=== PATIENT | female | born 1980 | race Caucasian/White ===

== ENCOUNTER 2017-03-12 18:01 | Inpatient (IN) | payer MEDICAID ==
[~2017-03-12] VITALS: Ht 154.9 cm; Wt 67.7 kg
[~2017-03-12 18:01] MED LIST: CIPR-173 PO; HYDR1CAP PO; IBUP-727 PO; TAMS-14 PO
[2017-03-12 18:43] LABS: ADD UMIC YES; UR ASCORBIC ACID NEGATIVE (NEGATIVE); UR BACTERIA FEW /HPF (NONE SEEN); UR BILIRUBIN (Dip) NEGATIVE (NEGATIVE); UR BLOOD (Dip) NEGATIVE (NEGATIVE); UR CLARITY CLEAR (CLEAR); UR COLOR STRAW (YELLOW); UR GLUCOSE (Dip) NEGATIVE (NEGATIVE); UR KETONES (Dip) TRACE mg/dL (NEGATIVE); UR LEUKOCYTE ESTERASE (Dip) TRACE Leu/ul (NEGATIVE); UR NITRITE (Dip) NEGATIVE (NEGATIVE); UR RBC 0 /HPF (0-5); UR SPECIFIC GRAVITY (Dip) 1.002 (1.003-1.030); UR TOTAL PROTEIN (Dip) NEGATIVE (NEGATIVE); UR UROBILINOGEN (Dip) NEGATIVE (NEGATIVE)
[2017-03-12] MEDS: LACTATED RINGER'S 1,000 ML IV SCH ×2 (19:00→22:28)
[2017-03-12 19:08] VITALS: Ht 154.9 cm; Wt 67.7 kg
[2017-03-12 19:09] VITALS: BP 113/62; PULSE 87; RESP 18
[2017-03-12 19:16] LABS: WHITE BLOOD COUNT 8.9 10^3/ul (4.8-10.8)
[2017-03-12 19:17] LABS: BASOPHILS % 0.1 % (0.0-2.0); EOSINOPHILS % 0.3 % (0.0-7.0); HEMATOCRIT 38.5 % (37.0-47.0); HEMOGLOBIN 13.8 g/dl (12.0-16.0); LYMPHOCYTES # 1.4 10^3/ul (0.8-2.9); LYMPHOCYTES % 16.2 % (15.0-51.0); MEAN CORPUSCULAR HEMOGLOBIN 32.2 pg (29.0-33.0); MEAN CORPUSCULAR HGB CONC 35.8 g/dl (32.0-37.0); MEAN PLATELET VOLUME 11.8 fl (7.4-10.4); MONOCYTE # 0.5 10^3/ul (0.3-0.9); MONOCYTES % 5.7 % (0.0-11.0); NEUTROPHIL # 6.8 10^3/ul (1.6-7.5); NEUTROPHILS % 77.1 % (39.0-77.0); PLATELET COUNT 197 10^3/UL (140-415); RED BLOOD COUNT 4.28 10^6/ul (4.20-5.40); RED CELL DISTRIBUTION WIDTH 12.5 % (11.5-14.5)
[2017-03-12 19:37] LABS: ALBUMIN 3.6 g/dl (3.3-4.9); ALBUMIN/GLOBULIN RATIO 1.09; CALCIUM 8.8 mg/dl (8.4-10.2); CREATININE 0.53 mg/dl (0.44-1.00); POTASSIUM 3.4 mmol/L (3.5-5.1); TOTAL PROTEIN 6.9 g/dl (6.1-8.1)
--- NOTE | 2017-03-12 20:27 | RADRPT ---
PROCEDURE: OB ultrasound for biophysical profile CLINICAL INDICATION: 28-year-old female. labor. TECHNIQUE: Multiple sonographic images of the pelvis were obtained. Transabdominal view of the gr avid uterus are available for review. The images were reviewed on a PACS workstation. COMPARISON: None FINDINGS: BERNIE April 22, 2017 EGA by BERNIE 34 weeks 1 day breathing movement = 2/2 tone = 2/2 motion = 2/2 Amniotic fluid = 2/2 MYRA = 10.2 cm Single live intrauterine in cephalic presentation with cardiac activity (144 bpm). Anterior placenta, grade 1. Maximal placental thickness measures 3.4 cm. IMPRESSION: 1. Single viable intrauterine gestation in cephalic presentation.. 2. Biophysical profile = 8/8. 3. MYRA = 10.2 cm. 4. Anterior grade 1 placenta. RPTAT: HCTS Physician Cruz Date Time Electronically viewed and signed by Nicole Harp Physician on 03/12/2017 20:27 CS/
[2017-03-12] MEDS ORDERED: BETAMET NA PHOS/AC(6 MG/ML) 5ML INJ IM ONE (21:00)
[2017-03-12] MEDS ORDERED: NIFEdipine 10 MG CAP PO ONE (21:00)
--- NOTE | 2017-03-12 21:37 | HP ---
Date/Time of Note Date/Time of Note DATE: 03/12/17 TIME: 21:35 OB - History Hx of Present Free Text/Dictation iup 34 weeks co fo ucx. pt initially 2 cm and on recheck 3 cm dialted and ucx q6 min Chief Complaint: ucx : 4 Para: 2 Care: Good Care Obstetrical Complications: Gestational Diabetes Medical Complications: None Past Family/Social History * Past Medical, Surgical, Family and Obstetric Histories reviewed from chart. OB Admission Exam Vital Signs Vital Signs Vital Signs Date Time Temp Pulse Resp B/P Pulse Ox O2 Delivery O2 Flow Rate FiO2 03/12/17 19:09 98.8 87 18 113/62 97 Room Air Physical Exam HEENT: WNL Heart: Rhythm Normal Abdomen: WNL Cervical Dilatation: 3cm Accelerations: Accelerations Present Last 72 hours Lab Results CBC & BMP 03/12/17 19:00 Liver Function Test 03/12/17 19:00 Alanine Aminotransferase (ALT/SGPT) 36 Albumin 3.6 Alkaline Phosphatase 157 H Aspartate Amino Transf (AST/SGOT) 30 Direct Bilirubin 0.00 Total Protein 6.9 OB Assessment/Plan Reason for admission: labor Other plan: iup 34 weeks laobr with cervical change 2>3cm admit- BMS, amp, procardia, nicu, mfm in am DANISH TRAN MD Mar 12, 2017 21:36
[2017-03-12] MEDS ORDERED: LACTATED RINGER'S 1,000 ML IV PRN (22:00)
[2017-03-12] MEDS ORDERED: IBUPROFEN 600 MG TAB PO PRN (22:00)
[2017-03-12] MEDS ORDERED: LIDOCAINE 1% (MPF) 30 ML INJ INJ PRN (22:00)
[2017-03-12] MEDS ORDERED: BUTORPHANOL 2 MG INJ IV PRN (22:00)
[2017-03-12] MEDS ORDERED: OXYTOCIN 30 UNITS/LR 500 ML IV PRN (22:00)
[2017-03-12] MEDS ORDERED: OXYTOCIN 30 UNITS/LR 500 ML IV SCH ×2 (22:00)
[2017-03-12] MEDS ORDERED: METHYLERGONOVINE 0.2 MG INJ IM PRN (22:00)
[2017-03-12] MEDS ORDERED: MISOPROSTOL 200 MCG TAB PR PRN (22:00)
[2017-03-12] MEDS ORDERED: CARBOPROST 250 MCG INJ IM PRN (22:00)
[2017-03-12] MEDS ORDERED: AMPICILLIN 2 GM/NS (PMX) 100 ML IV ONE (22:00)
--- NOTE | 2017-03-12 23:04 | RADRPT ---
PROCEDURE: ULTRASOUND OBSTETRICAL CLINICAL INDICATION: 36-year-old female in labor for size and date determination. TECHNIQUE: Multiple sonographic images of the pelvis were obtained. The images were reviewed on a PACS workstation. COMPARISON: Ultrasound biophysical profile March 12, 2017. FINDINGS: The cervix is not well visualized. There is a single viable intrauterine gestation. Cardiac activit y is present with 137 beats per minute. There is a vertex presentation. Measurements were made in or tracee to determine age. The results are as follows: BPD = 8.78 cm, HC = 30.99 cm, AC = 31.88 cm, FL = 6.54 cm. This yields and estimated gestational ag e of approximately 34 weeks 6 days. The estimated date of delivery is April 17, 2017. The EFW = 2591 +/- 389 g (5 lb 11 oz). The GP is 73%. The placenta is anterior. There is no evidence for an abruption or placenta previa. IMPRESSION: 1. Single viable intrauterine gestation of approximately 34 weeks 6 days with vertex presentation. The estimated date of delivery is April 17, 2017. 2. The estimated weight is 2591 +/- 389 g (5 lb 11 oz). The GP is 73%. .Simone Rowland MD, Date Time Electronically viewed and signed by .Simone Rowland MD, MD on 03/12/2017 23:04 .Aleah
[2017-03-13 01:26] LABS: INR 0.97; PROTIME 12.9 Sec (12.2-14.2)
[2017-03-13 01:27] LABS: PARTIAL THROMBOPLASTIN TIME 29.2 Sec (25.0-35.0)
--- NOTE | 2017-03-13 02:17 | TRIAGE ---
OB Triage Datetime Report Generated by CPN: 03/13/2017 02:16 Datetime: 03/13/2017 00:00 Stage of : Labor Maternal Assessment Level of Consciousness: Fully Conscious Labor Evaluation Frequency: 5-7 Monitor Mode: External Duration (sec)2399: 60-80 Quality: Moderate Resting Tone Mcmullen: Relaxed Heart Rate FHR Baseline Rate: 140 Monitor Mode: External US Variability: Moderate 6-25 bpm Accelerations: 15X15 Decelerations: None Category: Category I Pain Assessment Pain Scale: 3 Pain Presence: Intermittent Pain Type: Contraction Pain Location: Abdomen Pain Goal: 4 Datetime: 03/12/2017 23:00 Stage of : Labor Maternal Assessment Level of Consciousness: Fully Conscious Labor Evaluation Frequency: 2-4 Monitor Mode: External Duration (sec)2399: 60-90 Quality: Moderate Resting Tone Mcmullen: Relaxed Heart Rate FHR Baseline Rate: 140 Monitor Mode: External US Variability: Moderate 6-25 bpm Accelerations: 15X15 Decelerations: None Category: Category I Pain Assessment Pain Scale: 3 Pain Presence: Intermittent Pain Type: Contraction Pain Location: Abdomen Pain Goal: 4 Datetime: 03/12/2017 22:29 Stage of : Labor Maternal Assessment Level of Consciousness: Fully Conscious Labor Evaluation Frequency: 2-4 Monitor Mode: External Duration (sec)2399: 60-90 Quality: Moderate Resting Tone Mcmullen: Relaxed Heart Rate FHR Baseline Rate: 145 Monitor Mode: External US Variability: Moderate 6-25 bpm Accelerations: 15X15 Decelerations: None Category: Category I Pain Assessment Pain Scale: 3 Pain Presence: Intermittent Pain Type: Contraction Pain Location: Abdomen Pain Goal: 4 Datetime: 03/12/2017 22:15 Stage of : Labor Comments: MONITORS REATTACHED AFTER US Datetime: 03/12/2017 22:00 Assessment Type: Admission Assessment Vaginal Bleeding: None Maternal Assessment Level of Consciousness: Fully Conscious DTR's/Clonus: DTRs 2+; No Clonus Headache: Denies Blurred Vision: No Respiratory Effort: Unlabored; Regular Rhythm; Equal Expansion Breath Sounds, Left: Clear and Equal Breath Sounds, Right: Clear and Equal Nausea/Vomiting: Denies RUQ Epigastric Pain: Denies Lower Extremities Edema: None Upper Extremities Edema: None Facial Edema: None Fall Risk Assessment History of Falling: (0) No Secondary Diagnosis: (0) No Ambulatory Aid: (0) Bedrest/Nurse Assist IV Therapy: (0) No Gait: (0) Normal/Bedrest/Immobile Mental Status: (0) Oriented to Own Ability Fall Score: 0 Fall Risk Score Definition: No Risk: No action required Labor Evaluation Frequency: 2-5 Duration (sec)2399: 50-80 Quality: Moderate Pattern: Normal: <= 5 Contractions in 10 Minutes Resting Tone Mcmullen: Relaxed Heart Rate FHR Baseline Rate: 145 Variability: Moderate 6-25 bpm Accelerations: 15X15 Decelerations: None Category: Category I Pain Assessment Pain Scale: 3 Pain Presence: Intermittent Pain Type: Contraction; Pressure Pain Goal: 3 Membrane Status: Intact Datetime: 03/12/2017 21:50 Stage of : Labor Datetime: 03/12/2017 21:48 Stage of : Labor Datetime: 03/12/2017 21:41 Time of Arrival: 03/12/2017 21:41 EGA: 34.1 Arrived By: Ambulatory Datetime: 03/12/2017 21:36 Labor Evaluation Frequency: 1.5-4.5 Monitor Mode: External Duration (sec)2399: 60-110 Quality: Mild Pattern: Normal: <= 5 Contractions in 10 Minutes Resting Tone Mcmullen: Relaxed Heart Rate FHR Baseline Rate: 140 Monitor Mode: External US Variability: Moderate 6-25 bpm Accelerations: 15X15 Decelerations: None Category: Category I Datetime: 03/12/2017 21:29 Stage of : Labor Datetime: 03/12/2017 21:00 Labor Evaluation Frequency: 2-7 Monitor Mode: External Duration (sec)2399: 40-140 Quality: Mild Pattern: Normal: <= 5 Contractions in 10 Minutes Resting Tone Mcmullen: Relaxed Heart Rate FHR Baseline Rate: 140 Monitor Mode: External US Variability: Moderate 6-25 bpm Accelerations: 15X15 Decelerations: None Category: Category I Datetime: 03/12/2017 20:42 Vaginal Exam Dilatation (cms): 3.0 Effacement (%): 70 Station: -2 Exam By: BE Cervix, Consistency: Soft Cervix, Position: Midposition Presentation 'A': Cephalic Datetime: 03/12/2017 20:00 Labor Evaluation Frequency: 2-8 Monitor Mode: External Duration (sec)2399: 70-100 Quality: Mild Pattern: Normal: <= 5 Contractions in 10 Minutes Resting Tone Mcmullen: Relaxed Heart Rate FHR Baseline Rate: 140 Monitor Mode: External US Variability: Moderate 6-25 bpm Accelerations: 15X15 Decelerations: None Category: Category I Datetime: 03/12/2017 19:15 Labor Evaluation Frequency: 3-7 Monitor Mode: External Duration (sec)2399: 50-120 Quality: Moderate Pattern: Normal: <= 5 Contractions in 10 Minutes Resting Tone Mcmullen: Relaxed Heart Rate FHR Baseline Rate: 145 Monitor Mode: External US Variability: Moderate 6-25 bpm Accelerations: 15X15 Decelerations: None Category: Category I Datetime: 03/12/2017 19:14 Stage of : Labor Assessment Type: Triage Maternal Assessment Level of Consciousness: Fully Conscious DTR's/Clonus: DTRs 2+; No Clonus Headache: Denies Blurred Vision: No Respiratory Effort: Unlabored; Regular Rhythm; Equal Expansion Breath Sounds, Left: Clear and Equal Breath Sounds, Right: Clear and Equal Nausea/Vomiting: Denies RUQ Epigastric Pain: Denies Lower Extremities Edema: Bilateral Lower Extremities Degree: 1+ Upper Extremities Edema: None Degree: None Facial Edema: None Fall Risk Assessment History of Falling: (0) No Secondary Diagnosis: (0) No Ambulatory Aid: (0) Bedrest/Nurse Assist IV Therapy: (0) No Gait: (0) Normal/Bedrest/Immobile Mental Status: (0) Oriented to Own Ability Fall Score: 0 Fall Risk Score Definition: No Risk: No action required Datetime: 03/12/2017 19:12 Stage of : OB Triage Assessment Type: Triage Time of Arrival: 03/12/2017 17:47 EGA: 34.1 Arrived By: Ambulatory Arrived From: Home Chief Complaint: VAGINAL PRESSURE, N/V VOMIT X2, CHILLS Movement: Present Contractions: Occasional Vaginal Bleeding: None Vaginal Discharge: Denies Recent Sexual Intercouse: Denies Patient Complaints: Contractions; Cramping; Back Pain; Nausea; Vomiting Additional Patient Complaints: PT REPORT 2PP BLOOD SUGAR LEVEL 116 MG/ DL Time Provider Notified: 03/12/2017 18:21 Provider Notified: SHAMSIAN Initial Plan: NST AND CALL MD FOR MD ORDERS Maternal Assessment Level of Consciousness: Fully Conscious DTR's/Clonus: DTRs 2+; No Clonus Headache: Denies Blurred Vision: No Respiratory Effort: Unlabored; Regular Rhythm; Equal Expansion Breath Sounds, Left: Clear and Equal Breath Sounds, Right: Clear and Equal Nausea/Vomiting: Denies RUQ Epigastric Pain: Denies Lower Extremities Edema: Bilateral Lower Extremities Degree: 1+ Upper Extremities Edema: None Degree: None Facial Edema: None Temperature Route: Axillary Fall Risk Assessment History of Falling: (0) No Secondary Diagnosis: (0) No Ambulatory Aid: (0) Bedrest/Nurse Assist IV Therapy: (0) No Gait: (0) Normal/Bedrest/Immobile Mental Status: (0) Oriented to Own Ability Fall Score: 0 Fall Risk Score Definition: No Risk: No action required Pain Assessment Pain Scale: 7 Pain Presence: Intermittent Pain Type: Cramping Pain Location: Abdomen; Back Pain Goal: 2 Pain Relief Measures: Comfort Measures Datetime: 03/12/2017 18:00 Vaginal Exam Dilatation (cms): 2.0 Effacement (%): 50 Station: -3 Exam By: DAY SHIFT DEVI DAMON GIVEN IN REPORT Datetime: 02/19/2017 21:11 Fall Score: 0 Fall Risk Score Definition: No Risk: No action required Datetime: 02/19/2017 21:09 EGA: 31.1
[2017-03-13] MEDS: AMPICILLIN 1 GM/NS (PMX) 50 ML IV SCH ×6 (02:30→22:29)
[2017-03-13] MEDS: NIFEdipine 10 MG CAP PO SCH ×6 (02:31→22:32)
[2017-03-13] MEDS: LACTATED RINGER'S 1,000 ML IV SCH ×3 (07:32→21:41)
--- NOTE | 2017-03-13 12:01 | QN ---
Documentation Comment Neonatology consult Requested Dr. Downs This mother was admitted to [facility] with evidence of labor and history of gestational diabetes during her . Mother is presently having less labor is not ruptured afebrile. I discussed the risks associated with delivery for this including but not limited to the following. 1. Respiratory there is a mild risk for respiratory distress syndrome or transient tachypnea requiring oxygen supplementation mild ventilatory support for a short period of time. Also discussed the risks of apnea prematurity and its treatment. 2. Discussed the risks of cardiac problems including possible congenital defects that can be associated with a gestational diabetic presently most likely VSD or asymmetrical septal hypertrophy as well as hypertension and its treatment. 3. I discussed the risks of infection the use of antibiotic treatment 4. I discussed risks of feeding difficulties and use of occupational physical therapist as well as getting this baby to adequately take nutritionally consistently gain weight. 5. Discussed the risks of jaundice on the use of phototherapy. . Discussed the potential length of stay between 1-4 weeks of this particular depending on the clinical situation. Mother asked appropriate questions and these were answered. We will be available to assist in the care of this was delivered if you have any further questions please do not hesitate to contact us RENATA CHEUNG MD Mar 13, 2017 12:00
[2017-03-13] MEDS ORDERED: BETAMET NA PHOS/AC(6 MG/ML) 5ML INJ IM ONE (22:30)
[2017-03-14] MEDS: LACTATED RINGER'S 1,000 ML IV SCH ×4 (02:35→21:41)
[2017-03-14] MEDS: AMPICILLIN 1 GM/NS (PMX) 50 ML IV SCH ×6 (02:35→21:18)
[2017-03-14] MEDS: NIFEdipine 10 MG CAP PO SCH ×6 (02:36→21:18)
[2017-03-14] MEDS ORDERED: LACTATED RINGER'S 1,000 ML IV SCH (10:32)
[2017-03-15] MEDS: AMPICILLIN 1 GM/NS (PMX) 50 ML IV SCH ×3 (01:12→09:29)
[2017-03-15] MEDS: NIFEdipine 10 MG CAP PO SCH ×6 (01:13→20:59)
[2017-03-15] MEDS: LACTATED RINGER'S 1,000 ML IV SCH (06:22)
[2017-03-15] MEDS ORDERED: GLUCAGON 1 MG INJ IM PRN (11:30)
[2017-03-15] MEDS ORDERED: GLUCOSE GEL 15 GRAM TUBE PO PRN ×2 (11:30)
[2017-03-15] MEDS ORDERED: DEXTROSE 50% 50 ML SYRINGE IV PRN ×2 (11:30)
[2017-03-15] MEDS ORDERED: GLUCOSE GEL 15 GRAM TUBE BUCCAL PRN (11:30)
[2017-03-15] MEDS: INSULIN ASPART [NOVOLOG] 3 ML PEN SC SCH ×2 (14:00→20:05)
--- NOTE | 2017-03-15 16:44 | QN ---
Documentation Comment Resting in bed denies feeling any contractions, seen by perinatologist recommended if no cervical changes by tomorrow there is possibility of discharge ROXI SELBY MD Mar 15, 2017 16:44
[2017-03-16] MEDS: NIFEdipine 10 MG CAP PO SCH ×6 (00:26→23:44)
[2017-03-16] MEDS: LACTATED RINGER'S 1,000 ML IV PRN ×4 (01:08→18:44)
[2017-03-16] MEDS: INSULIN ASPART [NOVOLOG] 3 ML PEN SC SCH ×3 (10:00→20:05)
[2017-03-16 13:08] LABS: RUBELLA ANTIBODY - IGG 3.49 index
--- NOTE | 2017-03-16 19:17 | QN ---
Documentation Comment Resting in bed denies uterine contraction there has been no cervical change perinatology recommended if no cervical change she may be discharged home possible a.m. discharge discussed with the patient ROXI SELBY MD Mar 16, 2017 19:17
--- NOTE | 2017-03-16 20:56 | RADRPT ---
PROCEDURE: US OB cervical length. CLINICAL INDICATION: labor. Clinical estimated gestational age is 34 weeks 5 days with es timated date of delivery 04/22/2017 TECHNIQUE: Multiple sonographic images of the pelvis were obtained. Transvaginal imaging of the ce rvix was performed. The images were reviewed on a PACS workstation. COMPARISON: No prior studies are available for comparison. FINDINGS: The cervix is closed with a length of 2.4 cm. There is a single live intrauterine gestation. Cardiac activity is present with 157 beats per minut e. There is a cephalic position. The placenta is anterior. There is no evidence for an abruption. IMPRESSION: Single live intrauterine gestation. Length of cervix equals 2.4 cm on transvaginal ultrasound. RPTAT: HJES .Nelson Cuellar MD, Date Time Electronically viewed and signed by .Nelson Cuellar MD, on 03/16/2017 20:55 .S/
[2017-03-17] MEDS: LACTATED RINGER'S 1,000 ML IV PRN ×3 (02:38→19:10)
[2017-03-17] MEDS: NIFEdipine 10 MG CAP PO SCH ×3 (06:05→18:08)
[2017-03-17] MEDS: PRENATAL VITAMIN PO SCH (08:44)
[2017-03-17] MEDS: INSULIN ASPART [NOVOLOG] 3 ML PEN SC SCH ×3 (11:00→20:05)
--- NOTE | 2017-03-17 19:06 | QN ---
Documentation Comment 34 weeks 5/ 7 sitting in bed having dinner has no complaint of contraction stating occasional mild contraction, no changes since admission, perinatology consult for possible discharge, to be followed as an outpatient ROXI SELBY MD Mar 17, 2017 19:06
[2017-03-18] MEDS: NIFEdipine 10 MG CAP PO SCH ×4 (00:12→18:09)
[2017-03-18] MEDS: LACTATED RINGER'S 1,000 ML IV PRN ×3 (03:12→19:28)
[2017-03-18] MEDS: PRENATAL VITAMIN PO SCH (08:52)
[2017-03-18] MEDS: INSULIN ASPART [NOVOLOG] 3 ML PEN SC SCH ×3 (11:15→20:05)
--- NOTE | 2017-03-18 15:55 | CONS ---
Date/Time of Note Date/Time of Note DATE: 03/18/17 TIME: 15:42 Consultation Date/Type/Reason Admit Date/Time March 18, 2017 OB high risk consult Reason for Consultation This patient is 36 years old , 4 ,para 2, 1 ,with estimated date of confinement of April 22, 2017, which makes her 34 weeks and 6 days now . she was admitted in high risk floor on March 12, while about 34 weeks ,for possible premature contractions and the fact that on ultrasound her cervical length was three-point 1 centimeter.. She has a gestational diabetes mellitus diet-controlled . currently on 2000-calorie diet, she is also now on sliding scale for measuring her blood glucose Hx of Present Illness Laboratory Tests Test 03/17/17 16:37 03/17/17 19:46 03/18/17 07:48 03/18/17 11:33 Bedside Glucose 99mg/dL 112mg/dL 87mg/dL 80mg/dL Test 03/18/17 15:18 Bedside Glucose 97mg/dL Current Medications Medications (Trade) Dose Ordered Sig/Kali Route PRN Reason Start Time Stop Time Status Last Admin Dose Admin Lactated Ringer's (Lr) 1,000 ml @ 125 mls/hr Q8H IV 03/12/17 18:19 03/14/17 01:59 DC 03/13/17 07:32 125 MLS/HR Nifedipine (Procardia) 20 mg ONCE ONCE PO 03/12/17 21:00 03/12/17 21:01 DC 03/12/17 22:29 20 MG Betamethasone Acet/Betameth SodPhos 12 mg 12 mg ONCE ONCE IM 03/12/17 21:00 03/12/17 21:01 DC 03/12/17 22:30 12 MG Lactated Ringer's 1,000 ml @ 125 mls/hr Q8H IV 03/12/17 21:41 03/15/17 10:22 DC 03/15/17 06:22 125 MLS/HR Ampicillin 100 ml @ 100 mls/hr ONCE ONCE IV 03/12/17 22:00 03/12/17 22:59 DC 03/12/17 22:28 100 MLS/HR Ampicillin (Ampicillin 1 Gm/ NS (Pmx)) 50 ml @ 100 mls/hr Q4H IV 03/13/17 02:00 03/15/17 10:22 DC 03/15/17 09:29 100 MLS/HR Butorphanol Tartrate (Stadol) 2 mg Q2H PRN IV PAIN 03/12/17 22:00 03/14/17 19:31 DC Lidocaine 30 ml 30 ml ONCE PRN INJ EPISIOTOMY/TEARING 03/12/17 22:00 03/14/17 19:31 DC Oxytocin/Lactated Ringer's 500 ml @ 125 mls/hr ONCE -MAY REPEAT X1 IV 03/12/17 22:00 03/14/17 19:31 DC Oxytocin/Lactated Ringer's 500 ml @ 125 mls/hr ONCE IV 03/12/17 22:00 03/14/17 19:31 DC Ibuprofen 600 mg 600 mg ONCE PRN PO Mild Pain (Pain Score 1-3) 03/12/17 22:00 03/14/17 19:31 DC Lactated Ringer's 1,000 ml @ 2,000 mls/hr Q30M PRN IV PRE-EPIDURAL BOLUS 03/12/17 22:00 03/14/17 19:23 DC Oxytocin/Lactated Ringer's 500 ml @ 0 mls/hr ONCE PRN IV For Hemorrhage Management 03/12/17 22:00 03/14/17 19:31 DC Methylergonovine Maleate (Methergine) 0.2 mg ONCE PRN IM VAGINAL BLEEDING 03/12/17 22:00 03/14/17 19:31 DC Carboprost Tromethamine (Hemabate) 250 mcg ONCE PRN IM VAGINAL BLEEDING 03/12/17 22:00 03/14/17 19:31 DC Misoprostol (Cytotec) 1,000 mcg ONCE PRN NH VAGINAL BLEEDING 03/12/17 22:00 03/14/17 19:31 DC Nifedipine (Procardia) 10 mg Q4 PO 03/13/17 01:00 03/16/17 19:13 DC 03/16/17 16:57 10 MG Betamethasone Acet/Betameth SodPhos 12 mg 12 mg ONCE ONCE IM 03/13/17 22:30 03/13/17 22:31 DC 03/13/17 22:33 12 MG Lactated Ringer's (Lr) 1,000 ml @ 125 mls/hr Q8H IV 03/14/17 10:32 03/14/17 19:23 DC Insulin Aspart (Novolog Insulin Pen) 2 HOURS AFTER MEALS SC 03/15/17 14:00 Miscellaneous Information (* Miscellaneous Pharmacy Order) 1 ea OB HYPOGLYCEMIA ONCE XX 03/15/17 11:30 03/15/17 11:31 DC Miscellaneous Information 1 ea NOTE XX 03/15/17 11:30 Glucose (Glutose) 15 gm Q15M PRN PO DECREASED GLUCOSE 03/15/17 11:30 Glucose (Glutose) 22.5 gm Q15M PRN PO DECREASED GLUCOSE 03/15/17 11:30 Dextrose (D50w Syringe) 25 ml Q15M PRN IV DECREASED GLUCOSE 03/15/17 11:30 Dextrose (D50w Syringe) 50 ml Q15M PRN IV DECREASED GLUCOSE 03/15/17 11:30 Glucagon (Glucagen) 1 mg Q15M PRN IM DECREASED GLUCOSE 03/15/17 11:30 Glucose 15 gm 15 gm Q15M PRN BUCCAL DECREASED GLUCOSE 03/15/17 11:30 Lactated Ringer's (Lr) 1,000 ml @ 125 mls/hr Q8H PRN IV uterine contractions 03/16/17 01:30 03/18/17 11:36 125 MLS/HR Nifedipine (Procardia) 20 mg Q6 PO 03/17/17 00:00 03/18/17 11:54 20 MG Prenat Multivit/ [place]/Iron/Folic Ac () 1 tab DAILY PO 03/17/17 09:00 03/18/17 08:52 1 TAB Constitutional: No chills, No diaphoresis, No disoriented, No febrile, No improved, No no complaints, No other, No poor po, No requiring IVF, No requiring O2 Eyes: No discharge, No no complaints, No other, No pain, No redness, No visual change ENT: No bleeding, No congestion, No discharge, No dysphagia, No no complaints, No other, No pain, No sore throat Respiratory: other (No heart murmur no abnormal sounds), No cough, No no complaints, No pain, No pleuritic pain, No shortness of breath, No sputum, No wheezing Cardiovascular: other (Normal sinus rhythm no murmur), No chest pain, No edema, No lightheadedness, No no complaints, No orthopenea , No palpitations, No paroxysmal nocturnal dyspnea Gastrointestinal: No blood, No constipation, No decreased appetite, No diarrhea , No flatus, No nausea, No no complaints, No other, No pain, No passing stool, No vomiting Genitourinary: other (Pelvic examination 2 days ago to report was 3 cm dilatation 60% effacement -2 station and intact member however 3 is also stable 3 cm 60% and -2 station with intact membrane and otherwise no changes which means her contractions are noted to be effective and there is just Russell Garcia type contractions), No bleeding, No discharge, No dysuria, No flank pain, No hematuria, No no complaints Musculoskeletal: No back pain, No bone/joint pain, No neck pain, No no complaints, No other, No restricted range of motion, No swelling Skin: No bruising, No erythema, No laceration, No no complaints, No other, No pruritis, No rash, No skin lesions Neurologic: other (Knee-jerk reflexes normal), No confusion, No dizziness, No focal-weakness, No headache, No no complaints , No seizure, No syncope Endocrine: other (Blood glucose almost the normal range her gestational diabetes is controlled without need of any medication), No dry skin, No no complaints, No polydypsia, No polyuria, No temp intolerance Additional Comments Her blood glucose is controlled by diet alone . due to occasional contractions and short cervix she is placed on Procardia 20 mg every 6 hours, the estimated weight of the fetus is 2490 g The plan is to keep her in in area ;and if no evidence of contraction , no deterioration of olivo pattern , and the blood glucose is stable,, we might be able to discharge her tomorrow Social History Smoking Status: Never smoker Exam/Review of Systems Vital Signs Vitals Intake and Output 03/17/17 03/17/17 03/18/17 15:00 23:00 07:00 Intake Total 1000 ml 3500 ml 1135 ml Output Total 4400 ml 1400 ml Balance 1000 ml -900 ml -265 ml Results Results 24 hrs Laboratory Tests Test 03/17/17 16:37 03/17/17 19:46 03/18/17 07:48 03/18/17 11:33 Bedside Glucose 99 112 87 80 Test 03/18/17 15:18 Bedside Glucose 97 Medications Medications Current Medications Miscellaneous Information 1 ea NOTE XX ; Start 03/15/17 at 11:30 Glucose (Glutose) 15 gm Q15M PRN PO DECREASED GLUCOSE; Start 03/15/17 at 11:30 Glucose (Glutose) 22.5 gm Q15M PRN PO DECREASED GLUCOSE; Start 03/15/17 at 11: 30 Dextrose (D50w Syringe) 25 ml Q15M PRN IV DECREASED GLUCOSE; Start 03/15/17 at 11:30 Dextrose (D50w Syringe) 50 ml Q15M PRN IV DECREASED GLUCOSE; Start 03/15/17 at 11:30 Glucagon (Glucagen) 1 mg Q15M PRN IM DECREASED GLUCOSE; Start 03/15/17 at 11:30 Glucose 15 gm 15 gm Q15M PRN BUCCAL DECREASED GLUCOSE; Start 03/15/17 at 11:30 Lactated Ringer's (Lr) 1,000 ml @ 125 mls/hr Q8H PRN IV uterine contractions Last administered on 03/18/17 11:36; Admin Dose 125 MLS/HR; Start 03/16/17 at 01:30 Nifedipine (Procardia) 20 mg Q6 PO Last administered on 03/18/17 11:54; Admin Dose 20 MG; Start 03/17/17 at 00:00 Prenat Multivit/ [place]/Iron/Folic Ac () 1 tab DAILY PO Last administered on 03/18/17 08:52; Admin Dose 1 TAB; Start 03/17/17 at 09:00 RYAN DUGAN MD Mar 18, 2017 15:54
[2017-03-19] MEDS: NIFEdipine 10 MG CAP PO SCH ×4 (00:11→18:22)
[2017-03-19] MEDS: LACTATED RINGER'S 1,000 ML IV PRN (03:32)
[2017-03-19] MEDS: PRENATAL VITAMIN PO SCH (09:15)
[2017-03-19] MEDS: INSULIN ASPART [NOVOLOG] 3 ML PEN SC SCH ×3 (10:00→20:05)
--- NOTE | 2017-03-19 13:42 | QN ---
Documentation Comment Patient is resting in bed her vital signs are stable has no complaint of abdominal pain she has some contraction very few felt, no cervical change, she will be 35 weeks tomorrow plan of possible discharge a.m. with recommendation of bedrest pelvic rest follow-up at [facility] twice per week discussed with the patient, today ordered estimated weight with biophysical profile ROXI SELBY MD Mar 19, 2017 13:42
--- NOTE | 2017-03-19 16:09 | PN ---
DATE: 03/19/2017 RECOMMENDATION: The patient is to remain in the hospital for in house management because of labor, contractions, and dilated cervix at 3 cm. However, as her cervix is unchanged for the past 3 days she can go home if she can be on bedrest at home with labor precautions. I spoke to Dr. Crain to that effect in case the patient is kept in the hospital she can be discharged at 37 weeks unless there is an advanced cervical dilation further than what it is now. Dictated By: Izzy Alvares MD /haim/[email or web address] /Document#: [id number]
[2017-03-19] MEDS ORDERED: LABETALOL 200 MG TAB PO SCH (21:00)
[2017-03-19] MEDS ORDERED: LABETALOL 100 MG TAB PO SCH (21:00)
[2017-03-20] MEDS: NIFEdipine 10 MG CAP PO SCH ×3 (06:10→12:30)
[2017-03-20] MEDS: INSULIN ASPART [NOVOLOG] 3 ML PEN SC SCH (09:12)
[2017-03-20] MEDS: PRENATAL VITAMIN PO SCH (09:12)
--- NOTE | 2017-03-20 11:24 | PDOCDIS ---
Discharge Instructions CONDITION Patient Condition: Good HOME CARE INSTRUCTIONS: Diet Instructions: Regular ACTIVITY: Activity Restrictions: Slowly Increase Activity No Sexual Activity Bathing Restrictions: Shower FOLLOW UP/APPOINTMENTS Follow-up Plan Recommended bed rest follow-up as outpatient make appointment with [facility] to be seen on Wednesday to continue taking Procardia 20mg every 6 hours REFERRALS Agency Name and Phone Number: [facility] SCHOOL/WORK RELEASE May return to School/Work with: Mild activity ROXI SELBY MD Mar 20, 2017 11:24
--- NOTE | 2017-03-20 11:32 | PN ---
Date/Time of Note Date/Time of Note DATE: 03/20/17 TIME: 11:26 OB Subjective Subjective Subjective Resting in bed some contraction noted on the monitor but not felt by the patient examination carried no change in cervical dilatation cervix is still 2 to 3 cm 60% effaced vertex at -2 -3 patient is being discharged home with recommendation of bedrest pelvic rest follow-up at [facility] as of Wednesday ROXI SELBY MD Mar 20, 2017 11:32
--- NOTE | 2017-03-20 11:35 | DS ---
Date/Time of Note Date/Time of Note DATE: 03/20/17 TIME: 11:32 Discharge Summary Admission/Discharge Info Admit Date/Time Mar 12, 2017 at 21:20 Discharge Date/Time March 20, 2017 at 1130 Patient Condition: Good Hospital Course Laboratory Tests Test 03/17/17 16:37 03/17/17 19:46 03/18/17 07:48 03/18/17 11:33 Bedside Glucose 99mg/dL 112mg/dL 87mg/dL 80mg/dL Test 03/18/17 15:18 Bedside Glucose 97mg/dL Current Medications Medications (Trade) Dose Ordered Sig/Kali Route PRN Reason Start Time Stop Time Status Last Admin Dose Admin Lactated Ringer's (Lr) 1,000 ml @ 125 mls/hr Q8H IV 03/12/17 18:19 03/14/17 01:59 DC 03/13/17 07:32 125 MLS/HR Nifedipine (Procardia) 20 mg ONCE ONCE PO 03/12/17 21:00 03/12/17 21:01 DC 03/12/17 22:29 20 MG Betamethasone Acet/Betameth SodPhos 12 mg 12 mg ONCE ONCE IM 03/12/17 21:00 03/12/17 21:01 DC 03/12/17 22:30 12 MG Lactated Ringer's 1,000 ml @ 125 mls/hr Q8H IV 03/12/17 21:41 03/15/17 10:22 DC 03/15/17 06:22 125 MLS/HR Ampicillin 100 ml @ 100 mls/hr ONCE ONCE IV 03/12/17 22:00 03/12/17 22:59 DC 03/12/17 22:28 100 MLS/HR Ampicillin (Ampicillin 1 Gm/ NS (Pmx)) 50 ml @ 100 mls/hr Q4H IV 03/13/17 02:00 03/15/17 10:22 DC 03/15/17 09:29 100 MLS/HR Butorphanol Tartrate (Stadol) 2 mg Q2H PRN IV PAIN 03/12/17 22:00 03/14/17 19:31 DC Lidocaine 30 ml 30 ml ONCE PRN INJ EPISIOTOMY/TEARING 03/12/17 22:00 03/14/17 19:31 DC Oxytocin/Lactated Ringer's 500 ml @ 125 mls/hr ONCE -MAY REPEAT X1 IV 03/12/17 22:00 03/14/17 19:31 DC Oxytocin/Lactated Ringer's 500 ml @ 125 mls/hr ONCE IV 03/12/17 22:00 03/14/17 19:31 DC Ibuprofen 600 mg 600 mg ONCE PRN PO Mild Pain (Pain Score 1-3) 03/12/17 22:00 03/14/17 19:31 DC Lactated Ringer's 1,000 ml @ 2,000 mls/hr Q30M PRN IV PRE-EPIDURAL BOLUS 03/12/17 22:00 03/14/17 19:23 DC Oxytocin/Lactated Ringer's 500 ml @ 0 mls/hr ONCE PRN IV For Hemorrhage Management 03/12/17 22:00 03/14/17 19:31 DC Methylergonovine Maleate (Methergine) 0.2 mg ONCE PRN IM VAGINAL BLEEDING 03/12/17 22:00 03/14/17 19:31 DC Carboprost Tromethamine (Hemabate) 250 mcg ONCE PRN IM VAGINAL BLEEDING 03/12/17 22:00 03/14/17 19:31 DC Misoprostol (Cytotec) 1,000 mcg ONCE PRN NE VAGINAL BLEEDING 03/12/17 22:00 03/14/17 19:31 DC Nifedipine (Procardia) 10 mg Q4 PO 03/13/17 01:00 03/16/17 19:13 DC 03/16/17 16:57 10 MG Betamethasone Acet/Betameth SodPhos 12 mg 12 mg ONCE ONCE IM 03/13/17 22:30 03/13/17 22:31 DC 03/13/17 22:33 12 MG Lactated Ringer's (Lr) 1,000 ml @ 125 mls/hr Q8H IV 03/14/17 10:32 03/14/17 19:23 DC Insulin Aspart (Novolog Insulin Pen) 2 HOURS AFTER MEALS SC 03/15/17 14:00 Miscellaneous Information (* Miscellaneous Pharmacy Order) 1 ea OB HYPOGLYCEMIA ONCE XX 03/15/17 11:30 03/15/17 11:31 DC Miscellaneous Information 1 ea NOTE XX 03/15/17 11:30 Glucose (Glutose) 15 gm Q15M PRN PO DECREASED GLUCOSE 03/15/17 11:30 Glucose (Glutose) 22.5 gm Q15M PRN PO DECREASED GLUCOSE 03/15/17 11:30 Dextrose (D50w Syringe) 25 ml Q15M PRN IV DECREASED GLUCOSE 03/15/17 11:30 Dextrose (D50w Syringe) 50 ml Q15M PRN IV DECREASED GLUCOSE 03/15/17 11:30 Glucagon (Glucagen) 1 mg Q15M PRN IM DECREASED GLUCOSE 03/15/17 11:30 Glucose 15 gm 15 gm Q15M PRN BUCCAL DECREASED GLUCOSE 03/15/17 11:30 Lactated Ringer's (Lr) 1,000 ml @ 125 mls/hr Q8H PRN IV uterine contractions 03/16/17 01:30 03/18/17 11:36 125 MLS/HR Nifedipine (Procardia) 20 mg Q6 PO 03/17/17 00:00 03/18/17 11:54 20 MG Prenat Multivit/ [place]/Iron/Folic Ac () 1 tab DAILY PO 03/17/17 09:00 03/18/17 08:52 1 TAB Home Meds Reported Medications Ciprofloxacin Hcl (Cipro) 500 Mg Tablet, 500 MG PO DAILY 06/07/11 Tamsulosin Hcl* (Flomax*) 0.4 Mg Cap.sr.24h, 0.4 MG PO DAILY 06/07/11 Hydrocodone Bit/Acetaminophen (Hydrocet 5-500 Capsule) 1 Cap Capsule, 1 CAP PO DAILY 06/07/11 Ibuprofen (Motrin) 600 Mg Tablet, PO Q6 PRN 06/07/11 Follow-up Plan Recommended bed moderate activity, appointment clinic on Wednesday Primary Care Provider Pending Labs Laboratory Tests Test 03/19/17 19:45 03/20/17 08:49 03/20/17 11:00 Bedside Glucose 125mg/dL (70-220) 86mg/dL (70-220) 84mg/dL (70-220) ROXI SELBY MD Mar 20, 2017 11:34
== END 2017-03-20 12:50 | disposition home or self-care (01) | DRG 780 ==
LOC: OBT 18:01 → L-D 18:03 → MERGE 21:20 → L-D 21:20 → OBT 21:20 → OBG 03-14 10:30
PROVIDERS: ADMIT Obstetrics & Gynecology; ATTEND Obstetrics & Gynecology
DX: O47.03 False labor before 37 completed weeks of gestation, third trimester (principal); O24.419 Gestational diabetes mellitus in pregnancy, unspecified control; Z3A.34 34 weeks gestation of pregnancy; O09.523 Supervision of elderly multigravida, third trimester
CPT/HCPCS: 36415; 76815; 76817; 76818; 80053; 81001; 82962; 84112; 85025; 85610; 85730; 86592; 86762; 86900; 86901; 87081; 87340; 96360; 96361; 96372; G0463; J0290; J0702; J1815; J7120

== ENCOUNTER 2017-03-31 21:29 | Inpatient (IN) | payer OTHER, MEDICAID ==
[~2017-03-31] VITALS: Ht 154.9 cm; Wt 69.1 kg
[2017-03-31 21:59] VITALS: BP 109/74; PULSE 81; RESP 18
[2017-03-31] MEDS ORDERED: PRENAT PO (22:03)
[2017-03-31] MEDS ORDERED: CALC600T11 PO (22:03)
[2017-03-31] MEDS ORDERED: FERR134T PO (22:03)
[2017-03-31 22:11] LABS: ADD UMIC NO; UR ASCORBIC ACID NEGATIVE (NEGATIVE); UR BILIRUBIN (Dip) NEGATIVE (NEGATIVE); UR BLOOD (Dip) NEGATIVE (NEGATIVE); UR CLARITY CLEAR (CLEAR); UR COLOR STRAW (YELLOW); UR GLUCOSE (Dip) NEGATIVE (NEGATIVE); UR KETONES (Dip) NEGATIVE (NEGATIVE); UR LEUKOCYTE ESTERASE (Dip) NEGATIVE Leu/ul (NEGATIVE); UR NITRITE (Dip) NEGATIVE (NEGATIVE); UR SPECIFIC GRAVITY (Dip) 1.004 (1.003-1.030); UR TOTAL PROTEIN (Dip) NEGATIVE (NEGATIVE); UR UROBILINOGEN (Dip) NEGATIVE (NEGATIVE)
--- NOTE | 2017-03-31 23:16 | RADRPT ---
PROCEDURE: US OB. CLINICAL INDICATION: Estimated weight, deceleration. Clinical estimated gestational age is 36 weeks 6 days with estimated date of delivery 04/22/2017 TECHNIQUE: Multiple sonographic images of the pelvis were obtained. The images were reviewed on a PACS workstation. COMPARISON: 03/29/2017 FINDINGS: There is a single live intrauterine gestation. Cardiac activity is present with 159 beats per minut e. There is a cephalic position. Measurements were made in order to determine age. The results are as follows: BPD =9.43 cm, 38 weeks 3 days HC =33.05 cm, 37 weeks 4 days AC =34.71 cm, 38 weeks 4 days FL =7.83 cm, 40 weeks 0 days. Estimated gestational age of approximately 38 weeks 5 days. The estimated date of delivery is 04/09/2017. The EFW = 3597 g, 7 pounds 15 ounces, 94.2% . The placenta is anterior and grade I/II. There is no evidence for an abruption. IMPRESSION: Single live intrauterine gestation of approximately 38 weeks 5 days based on ultrasound measurements . The estimated date of delivery is 04/09/2017 . RPTAT: HJES .Nelson Cuellar MD, Date Time Electronically viewed and signed by .Nelson Cuellar MD, on 03/31/2017 23:15 .S/
--- NOTE | 2017-03-31 23:18 | RADRPT ---
PROCEDURE: Biophysical profile with amniotic fluid index CLINICAL INDICATION: Deceleration TECHNIQUE: Color and martins-scale ultrasound images of an intrauterine gestation were obtained. COMPARISON: OB ultrasound of 03/31/2017 FINDINGS: A single live intrauterine gestation is identified in cephalic position with an estimated hear t rate of 159 beats per minute. The placenta is located anteriorly. MYRA is 8.03 cm. movement 2/2. tone 2/2. breathing movement 2/2. Qualitative AFV 2/2 Total biophysical profile 03/09 IMPRESSION: 03/09 biophysical profile. RPTAT: HJES .Nelson Cuellar MD, Date Time Electronically viewed and signed by .Nelson Cuellar MD, on 03/31/2017 23:18 .S/
[2017-04-01] MEDS ORDERED: IBUPROFEN 600 MG TAB PO PRN
[2017-04-01] MEDS ORDERED: OXYTOCIN 30 UNITS/LR 500 ML IV PRN
[2017-04-01] MEDS ORDERED: CARBOPROST 250 MCG INJ IM PRN
[2017-04-01] MEDS ORDERED: AMPICILLIN 2 GM/NS (PMX) 100 ML IV ONE
[2017-04-01] MEDS ORDERED: METHYLERGONOVINE 0.2 MG INJ IM PRN
[2017-04-01] MEDS ORDERED: BUTORPHANOL 2 MG INJ IV PRN
[2017-04-01] MEDS ORDERED: LIDOCAINE 1% (MPF) 30 ML INJ INJ PRN
[2017-04-01] MEDS ORDERED: OXYTOCIN 30 UNITS/LR 500 ML IV SCH ×2
[2017-04-01] MEDS ORDERED: MISOPROSTOL 200 MCG TAB PR PRN
--- NOTE | 2017-04-01 00:21 | TRIAGE ---
OB Triage Datetime Report Generated by CPN: 04/01/2017 00:20 Datetime: 03/31/2017 23:40 Stage of : OB Triage Datetime: 03/31/2017 23:22 Stage of : OB Triage Labor Evaluation Frequency: 2-4 Monitor Mode: External Duration (sec)2399: 60 Quality: Moderate Pattern: Normal: <= 5 Contractions in 10 Minutes Resting Tone [place]: Relaxed Heart Rate FHR Baseline Rate: 145 Monitor Mode: External US FHR Baseline Changes: No Baseline Change Variability: Moderate 6-25 bpm Accelerations: 15X15 Decelerations: None Category: Category I Vaginal Exam Dilatation (cms): 4.0 Effacement (%): 80 Station: -2 Exam By: Gadiel Serrano Membrane Status: Intact Vaginal Bleeding: None Cervix, Consistency: Soft Cervix, Position: Midposition Datetime: 03/31/2017 22:54 Labor Evaluation Frequency: 1.5-6 Monitor Mode: External Duration (sec)2399: 60 Quality: Moderate Pattern: Normal: <= 5 Contractions in 10 Minutes Resting Tone [place]: Relaxed Heart Rate FHR Baseline Rate: 150 Monitor Mode: External US Datetime: 03/31/2017 22:05 Stage of : OB Triage Monitor Mode: External Quality: Mild Pattern: Normal: <= 5 Contractions in 10 Minutes Resting Tone [place]: Relaxed Heart Rate FHR Baseline Rate: 150 Monitor Mode: External US FHR Baseline Changes: No Baseline Change Variability: Moderate 6-25 bpm Accelerations: 15X15 Decelerations: Late Category: Category II Datetime: 03/31/2017 22:00 Time of Arrival: 03/31/2017 21:25 EGA: 36.6 Arrived By: Ambulatory Arrived From: Home Chief Complaint: c/o ucs. Hx PTL and states was 3cm last admit here Movement: Present Contractions: Irregular Time Contractions Began: 03/31/2017 16:00 Contractions: q5-10 Rupture of Membranes: Denies Vaginal Bleeding: None Vaginal Discharge: Denies Recent Sexual Intercouse: Denies Abdominal Trauma: Not Applicable Patient Complaints: Contractions Time Provider Notified: 03/31/2017 22:05 Provider Notified: Dr Bañuelos Initial Plan: EFM,SVE,UA,BPP,EFW,PO hydration Datetime: 03/31/2017 21:41 Stage of : OB Triage Maternal Assessment Level of Consciousness: Fully Conscious Headache: Denies Blurred Vision: No Respiratory Effort: Unlabored Nausea/Vomiting: Denies RUQ Epigastric Pain: Denies Facial Edema: None Labor Evaluation Frequency: placed Monitor Mode: External Resting Tone [place]: Relaxed Heart Rate FHR Baseline Rate: 155 Monitor Mode: External US Pain Assessment Pain Scale: 4 Pain Presence: Intermittent Pain Type: Cramping Pain Location: Abdomen
[2017-04-01] MEDS ORDERED: LACTATED RINGER'S 1,000 ML IV PRN (01:00)
[2017-04-01] MEDS: LACTATED RINGER'S 1,000 ML IV SCH ×3 (01:39→19:30)
[2017-04-01] MEDS: ACCU-CHEK XX SCH ×6 (01:53→19:35)
[2017-04-01 02:16] LABS: BASOPHILS % 0.4 % (0.0-2.0); EOSINOPHILS # 0.1 10^3/ul (0.0-0.5); HEMATOCRIT 38.5 % (37.0-47.0); HEMOGLOBIN 13.7 g/dl (12.0-16.0); LYMPHOCYTES # 1.9 10^3/ul (0.8-2.9); LYMPHOCYTES % 22.9 % (15.0-51.0); MEAN CORPUSCULAR HEMOGLOBIN 32.2 pg (29.0-33.0); MEAN CORPUSCULAR HGB CONC 35.6 g/dl (32.0-37.0); MEAN CORPUSCULAR VOLUME 90.4 fl (82.0-101.0); MEAN PLATELET VOLUME 12.2 fl (7.4-10.4); MONOCYTE # 0.5 10^3/ul (0.3-0.9); MONOCYTES % 6.2 % (0.0-11.0); NEUTROPHILS % 69.1 % (39.0-77.0); PLATELET COUNT 170 10^3/UL (140-415); RED BLOOD COUNT 4.26 10^6/ul (4.20-5.40); RED CELL DISTRIBUTION WIDTH 12.5 % (11.5-14.5); WHITE BLOOD COUNT 8.1 10^3/ul (4.8-10.8)
[2017-04-01 02:34] LABS: INR 0.9; PROTIME 12.1 Sec (12.2-14.2); PT RATIO 0.9
[2017-04-01 02:35] LABS: PARTIAL THROMBOPLASTIN TIME 25.8 Sec (25.0-35.0)
[2017-04-01] MEDS: AMPICILLIN 1 GM/NS (PMX) 50 ML IV SCH ×2 (04:07→08:00)
--- NOTE | 2017-04-01 07:41 | HP ---
Date/Time of Note Date/Time of Note DATE: 04/01/17 TIME: 07:33 OB - History Hx of Present Free Text/Dictation April 01, 2017 Estimated Due Date: Apr 22, 2017 : 4 Para: 2 Spontaneous : 1 Care: Good Care Other Concerns: 36-year-old with IUP at 37 weeks with nasal care at [facility] presented with traction. She was noted to progress to 4 cm/ 80/ -2 and for that reason she was admitted due to labor Had a history of labor. She was admitted when she was 32 weeks to [facility] service due to labor. She received and completed a full course of steroids when she was in the hospital. Patient reports that at the time of admission she was 3 cm dilated. She was on nifedipine but stopped after 34 weeks. Patient denies any leaking of fluid, vaginal bleeding or decreased movement. heart tracing reassuring. Past Family/Social History * Past Medical, Surgical, Family and Obstetric Histories reviewed from chart. Blood Type: O+ Rubella: immune RPR/VDRL: Negative GBS Status: Negative HBsAG: Negative OB Admission Exam Vital Signs Vital Signs Vital Signs Date Time Temp Pulse Resp B/P Pulse Ox O2 Delivery O2 Flow Rate FiO2 03/31/17 21:59 98.0 81 18 109/74 Room Air Physical Exam HEENT: WNL Heart: Rhythm Normal Abdomen: WNL (Consistent with dates., She was yulissa every 2-3 minutes at the time of admission) Cervical Dilatation: 4cm Effacement: 75% Station: -2 Membranes: Intact Heart Rate: 130's Accelerations: Accelerations Present Decelerations: No Decelerations Varibility: Moderate Contractions on Admission: < 5 Minutes Apart Intensity: Moderate Last 72 hourBlood Glucose Bedside Glucose - 72 Hours Test 04/01/17 01:53 04/01/17 06:06 Bedside Glucose 130mg/dL (70-220) 114mg/dL (70-220) Last 72 hours Lab Results CBC & BMP 04/01/17 01:35 OB Assessment/Plan Reason for admission: active labor Other Assessment: 37 weeks Labor GBS Negative Prior To obtain her GBS records to GBS unknown she received GBS prophylaxis with ampicillin Heart tracing reassuring Expectant management Other plan: Dr Crain will be follow up in DAVID Maria MD Apr 01, 2017 07:41
[2017-04-01] MEDS ORDERED: GLUCOSE GEL 15 GRAM TUBE PO PRN ×2 (19:00)
[2017-04-01] MEDS ORDERED: GLUCOSE GEL 15 GRAM TUBE BUCCAL PRN (19:00)
[2017-04-01] MEDS ORDERED: DEXTROSE 50% 50 ML SYRINGE IV PRN ×2 (19:00)
[2017-04-01] MEDS ORDERED: GLUCAGON 1 MG INJ IM PRN (19:00)
[2017-04-02] MEDS: LACTATED RINGER'S 1,000 ML IV SCH ×4 (07:51→23:51)
[2017-04-02] MEDS ORDERED: MINERAL OIL LIGHT 10 ML VIAL ONE (09:07)
[2017-04-02] MEDS: ACCU-CHEK XX SCH (09:35)
[2017-04-02] MEDS ORDERED: FENTAnyl 2MCG/ML-ROPIV 0.2% 100 ML ONE (10:34)
[2017-04-02] MEDS ORDERED: MINERAL OIL LIGHT 10 ML VIAL TOP PRN (12:30)
[2017-04-02] MEDS ORDERED: OXYTOCIN 30 UNITS/LR 500 ML IV SCH (13:30)
[2017-04-02] MEDS ORDERED: FENTAnyl 2MCG/ML-ROPIV 0.2% 100 ML BAG EPI SCH (13:40)
[2017-04-02] MEDS ORDERED: ONDANSETRON 4 MG INJ IV PRN (14:00)
[2017-04-02] MEDS ORDERED: HYDROmorphONE 1 MG/ML SYG IV PRN ×2 (14:00)
[2017-04-02] MEDS ORDERED: KETOROLAC 30 MG INJ IV PRN (14:00)
[2017-04-02] MEDS ORDERED: NALOXONE (0.4 MG/ML) INJ IV PRN (14:00)
[2017-04-02] MEDS ORDERED: DIPHENHYDRAMINE 50 MG INJ IV PRN (14:00)
[2017-04-02] MEDS ORDERED: DEXTROSE 5%-LR 1,000 ML IV SCH (19:30)
--- NOTE | 2017-04-03 01:52 | DELSUM ---
Delivery Summary A-C Datetime Report Generated by CPN: 04/03/2017 01:52 DELIVERY PERSONNEL Cytology Technologist: Hernandez, Alisia MATERNAL INFORMATION Delivery Anesthesia: Epidural Medications in Delivery: oxyt 30 units; epidural ropi and fent Placenta Cultured: No Maternal Complications: None Other Maternal Complications: A1DM (DIET CONTROLLED) LABOR SUMMARY EDC: 04/22/2017 00:00 EDC: 04/23/2017 00:00 No. Babies in Womb: 1 No. Babies in Womb: 1 Attempted: No Labor Anesthesia: IV Sedation LABOR INFORMATION Reason for Induction: Not Applicable Onset of Labor: 03/31/2017 16:00 Complete Dilatation: 04/03/2017 00:56 Oxytocin: N/A Group B Beta Strep: Negative Group B Beta Strep: Done, Result Unknown Group B Beta Strep: Done, Result Unknown Group B Beta Strep: Negative Group B Beta Strep: Not Done Group B Beta Strep: N/A Antibiotics # of Doses: 1 Antibiotics Time of Last Dose: 04/01/2017 01:39 Steroids Given: Full Course; >24Hs before Delivery Reason Steroids Not Administered: Indication MEMBRANES Membranes Rupture Method: Spontaneous Membranes Rupture Method: Artificial Membranes Rupture Method: Artificial Membranes Rupture Method: Artificial Membranes Rupture Method: Artificial Rupture of Membranes: 04/02/2017 18:56 Rupture of Membranes: 04/02/2017 12:49 Rupture of Membranes: 04/02/2017 12:49 Amniotic Fluid Color: Clear Amniotic Fluid Color: Clear Amniotic Fluid Color: Clear Amniotic Fluid Color: Clear Amniotic Fluid Color: Clear Amniotic Fluid Amount: Moderate Amniotic Fluid Amount: Scant Amniotic Fluid Odor: None VAGINAL DELIVERY Episiotomy: None Laceration Extension: First Degree Laceration Type: Perineal Laceration Repair: Yes Initial Vag Sponge Count: 10 Final Vag Sponge Count: 10 Initial Vag Sharps Count: 1 Final Vag Sharps Count: 2 Sponge Count Correct: Yes; Vaginal Sweep Performed BABY A INFORMATION Delivery Date/Time: 04/03/2017 01:27 Method of Delivery: Vaginal Method of Delivery: Vaginal Born in Route : No : N/A Forceps: N/A Vacuum Extraction: N/A Shoulder Dystocia : N/A SHOULDER DYSTOCIA BABY A Infant Delivery Date/Time: 04/03/2017 01:27 PRESENTATION/POSITION BABY A Presentation: Cephalic Presentation: Cephalic Presentation: Cephalic Presentation: Cephalic Presentation: Unable to Assess Cephalic Presentation: Vertex Breech Presentation: N/A PLACENTA INFORMATION BABY A Placenta Delivery Time : 04/03/2017 01:32 Placenta Method of Delivery: Spontaneous Placenta Method of Delivery: Spontaneous Placenta Status: Delivered SCORES BABY A Heart Rate 1 min: >100 bpm Resp Effort 1 min: Good Cry Reflex Irritability 1 min: Cough/Sneeze/Pulls Away Muscle Tone 1 min: Active Motion Color 1 min: Body [place], Extremit Blue Resuscitation Effort 1 min: Tactile Stimulation Heart Rate 5 min: >100 bpm Resp Effort 5 min: Good Cry Reflex Irritability 5 min: Cough/Sneeze/Pulls Away Muscle Tone 5 min: Active Motion Color 5 min: Body [place], Extremit Blue Resuscitation Effort 5 min: Tactile Stimulation INFANT INFORMATION BABY A Gestational Age at Delivery: 37.2 Infant Outcome : Liveborn Condition : Stable Sex: Female Infant Sex: Female IDENTIFICATION/MEDS BABY A ID Band Number: [id number] ID Band Location: Right Leg; Left Arm Sensor Applied: Yes Sensor Number: [id number] Sensor Location : Cord Clamp Vitamin K Given : Not Given Erythromycin Given: Not Given WEIGHT/LENGTH BABY A Birthweight (gm): 3470 Infant Length (in): 19.00 CORD INFORMATION BABY A No. Cord Vessels: 3 Nuchal Cord : N/A Cord Blood Taken: Yes Infant Suction: Mouth; Nose ASSESSMENT BABY A Infant Complications: None Physical Findings at Delivery: Within Normal Limits Infant Respirations: Appears Normal Equipment Or Machinery Cleaner/ALS Called : No Infant Care By: Arik SOUSA Transferred To: Remains with Mother
--- NOTE | 2017-04-03 03:14 | LDN ---
Date/Time of Note Date/Time of Note DATE: 04/03/17 TIME: 03:11 Delivery Summary normal vaginal delivery Weeks of Gestation 37w2d Placenta Delivered: Spontaneously Meconium: none Episiotomy: No Perineal laceration: 1 Laceration repair: 00 ch gut Anesthesia type: Local Estimated blood loss: 200 Sponge & Needle done & correct: Yes All needle counts correct: Yes Any foreign bodies felt in the: No Problems: Delivery Information Sex Sex: female Apgars 1 Minute: 8 5 Minute: 9 Suctioning Nose & mouth suctioned at claudio: Yes Delee suction performed: No Umbilical Cord Umbilical cord with: 3 Vessels Cord presentations: no nuchal cord Cord Blood was obtained: Yes Mother & Baby Disposition Disposition Mom & Baby to Maternity; Good: Yes Mom transferred to: Other () Baby to NICU: No JORGE FALOCN MD Apr 03, 2017 03:14
[2017-04-03] MEDS ORDERED: BENZOCAINE 20% 56 ML SPRAY TOP PRN (04:00)
[2017-04-03] MEDS ORDERED: ZOLPIDEM 5 MG TAB PO PRN (04:00)
[2017-04-03] MEDS ORDERED: OXYCODONE/ASPIRIN (4.88/325) TAB PO PRN ×2 (04:00)
[2017-04-03] MEDS ORDERED: WITCH HAZEL/GLYCERIN PAD PR PRN (04:00)
[2017-04-03] MEDS ORDERED: CARBOPROST 250 MCG INJ IM PRN (04:00)
[2017-04-03] MEDS ORDERED: MISOPROSTOL 200 MCG TAB PR PRN (04:00)
[2017-04-03] MEDS ORDERED: OXYTOCIN 30 UNITS/LR 500 ML IV PRN (04:00)
[2017-04-03] MEDS ORDERED: METHYLERGONOVINE 0.2 MG INJ IM PRN (04:00)
[2017-04-03] MEDS ORDERED: LANOLIN 7 GM TUBE TOP PRN (04:00)
[2017-04-03 04:16] VITALS: BP 113/66; PULSE 56; RESP 18
[2017-04-03] MEDS: IBUPROFEN 600 MG TAB PO SCH ×3 (05:20→18:05)
[2017-04-03 08:20] VITALS: BP 112/66; PULSE 53; RESP 17
[2017-04-03] MEDS: SENNA/DOCUSATE NA (8.6MG/50MG) TAB PO SCH ×2 (09:01→20:54)
[2017-04-03 12:15] VITALS: BP 103/68; PULSE 61; RESP 18
[2017-04-03 16:00] VITALS: BP 105/59; PULSE 62; RESP 17
[2017-04-03 20:00] VITALS: BP 115/74; PULSE 65; RESP 18
[2017-04-04] MEDS: IBUPROFEN 600 MG TAB PO SCH ×5 (00:16→23:54)
[2017-04-04 00:44] VITALS: BP 112/69; PULSE 65; RESP 18
[2017-04-04 04:30] VITALS: BP 111/65; PULSE 52; RESP 18
[2017-04-04 08:00] VITALS: BP 108/69; PULSE 55; RESP 17
[2017-04-04 08:16] LABS: BASOPHILS % 0.3 % (0.0-2.0); EOSINOPHILS # 0.2 10^3/ul (0.0-0.5); EOSINOPHILS % 1.8 % (0.0-7.0); HEMATOCRIT 35.3 % (37.0-47.0); LYMPHOCYTES # 2.1 10^3/ul (0.8-2.9); LYMPHOCYTES % 23.7 % (15.0-51.0); MEAN CORPUSCULAR HEMOGLOBIN 31.3 pg (29.0-33.0); MEAN CORPUSCULAR VOLUME 92.2 fl (82.0-101.0); MEAN PLATELET VOLUME 12.2 fl (7.4-10.4); MONOCYTE # 0.6 10^3/ul (0.3-0.9); MONOCYTES % 6.7 % (0.0-11.0); PLATELET COUNT 138 10^3/UL (140-415); RED BLOOD COUNT 3.83 10^6/ul (4.20-5.40); RED CELL DISTRIBUTION WIDTH 12.9 % (11.5-14.5); WHITE BLOOD COUNT 8.7 10^3/ul (4.8-10.8)
[2017-04-04] MEDS: SENNA/DOCUSATE NA (8.6MG/50MG) TAB PO SCH ×2 (08:41→21:00)
--- NOTE | 2017-04-04 10:26 | PN ---
Date/Time of Note Date/Time of Note DATE: 04/04/17 TIME: 10:22 OB Subjective Subjective Subjective Post normal vaginal delivery [id number] signs are stable, abdomen soft, uterus firm, lochia normal Extremities normal ROXI SELBY MD Apr 04, 2017 10:26
[2017-04-04 16:00] VITALS: BP 110/71; PULSE 66; RESP 17
[2017-04-04 20:00] VITALS: BP 98/53; PULSE 75; RESP 18
[2017-04-05 04:05] VITALS: BP 110/62; PULSE 66; RESP 17
[2017-04-05] MEDS: IBUPROFEN 600 MG TAB PO SCH ×3 (05:31→18:12)
[2017-04-05 07:30] VITALS: BP 101/63; PULSE 64; RESP 18
[2017-04-05] MEDS ORDERED: DIPHTH/TET/ACEL PERTUSS (ADULT) 0.5 ML VIAL IM* ONE (09:00)
[2017-04-05] MEDS: SENNA/DOCUSATE NA (8.6MG/50MG) TAB PO SCH (09:00)
--- NOTE | 2017-04-05 13:01 | DS ---
Date/Time of Note Date/Time of Note DATE: 04/05/17 TIME: 12:58 Discharge Summary Admission/Discharge Info Admit Date/Time Mar 31, 2017 at 23:40 Discharge Date/Time April 05, 2017 at 1300 Discharge Diagnosis Post normal vaginal delivery day 2 Patient Condition: Good Procedures Normal vaginal delivery Hx of Present Illness Term in labor Hospital Course Satisfactory recovery uneventful satisfactory recovery uneventful Home Meds Reported Medications Ferrous Sulfate (Iron) 134 Mg Tablet, 134 MG PO DAILY, TAB 03/31/17 Calcium Carbonate* (Calcium Carbonate*) 600 MG Ca Tab, 600 MG PO DAILY, TAB 03/31/17 Multivit/Min/Fol Ac/Iron/Pren* ( S*) 1 Tab Tab, 1 TAB PO DAILY, TAB 03/31/17 Follow-up Plan instructions given recommended patient to make appointment to be seen at the clinic in 2 weeks Primary Care Provider Bartolome Ackerman Time spent on discharge: < 30 minutes ROXI SELBY MD Apr 05, 2017 13:01
[2017-04-05 16:00] VITALS: BP 108/73; PULSE 61; RESP 20
== END 2017-04-05 18:30 | disposition home or self-care (01) | DRG 775 ==
LOC: OBT 21:29 → L-D 21:29 → OBT 23:40 → L-D 23:40 → PP1 04-03 03:49
PROVIDERS: ADMIT Obstetrics & Gynecology; ATTEND Obstetrics & Gynecology
PROC: 10E0XZZ Delivery of Products of Conception, External Approach (ICD-10-PCS; principal; 2017-04-03)
PROC: 0HQ9XZZ Repair Perineum Skin, External Approach (ICD-10-PCS; 2017-04-03)
PROC: 3E0234Z Introduction of Serum, Toxoid and Vaccine into Muscle, Percutaneous Approach (ICD-10-PCS; 2017-04-05)
DX: O70.0 First degree perineal laceration during delivery (principal); Z23 Encounter for immunization; Z37.0 Single live birth; Z3A.37 37 weeks gestation of pregnancy
CPT/HCPCS: 62319; 76815; 76818; 81003; 82962; 85025; 85610; 85730; 86592; 86900; 86901; 90715; G0463; J0290; J0595; J2590; J3010; J7120; J7121